=== PATIENT | female | born 1970 | race Caucasian/White ===

== ENCOUNTER 2017-03-14 01:35 | Emergency (ER) | payer OTHER ==
[~2017-03-14 01:35] MED LIST: ACETAMINOPHEN PO; ALBUTEROL17 GM INH; AMOXICILLIN PO; ASPIRIN ENTERI325 M1 PO; ASPIRIN81 MG PO; BACTRIM DS TABL1 TA1 PO; BACTRIM DS TABL1 TA2 PO; BACTRIM DS TABL1 TAB PO; BENADRYL IV; BENZONATATE PO; CIPRO PO; CLEOCIN PO; CLEOCIN150 M2 PO; DOXYCYCLINE HY100 M1 PO; EES; HYDROCORTISONE30 G6 EXT; IBUPROFEN800 MG PO; LIPITOR PO; LIPITOR40 MG PO; LISINOPRIL PO; LISINOPRIL20 MG PO; LOPRESSOR PO; LORTAB 10/500 T1 TAB PO; LORTAB 5/500 TA1 TA1 PO; METOPROLOL TAR25 MG PO; MOBIC PO; NAPROXEN PO; NITROGYLCERIN SUBLINGUAL; PERCOCET5/325 PO; PHENERGAN DM PO; PHENERGAN VC W120 M1 PO; PHENERGAN W/CO120 ML PO; PHENERGAN25 M1 PO; PLAVIX PO; PREDNISONE PO; PRINIVIL20 M1 PO; PROVASTIN PO; TYLENOL #3 PO; TYLOX 5/500 CAP1 CAP PO; VIBRAMYCIN100 M1 DOB; VIBRAMYCIN100 M1 PO; VICODIN 5/1 TAB 5/50 PO; VICODIN 5/500 T1 TAB PO; ZITHROMAX PO
== END 2017-03-14 02:07 | disposition home or self-care (01) ==
LOC: SED 01:35
DX: L02.811 Cutaneous abscess of head [any part, except face] (principal); I10 Essential (primary) hypertension; F17.210 Nicotine dependence, cigarettes, uncomplicated
CPT/HCPCS: 99282